=== PATIENT | female | born 1980 | race Caucasian/White ===

== ENCOUNTER 2016-07-14 13:42 | Outpatient (CLI) | payer BC ==
[~2016-07-14 13:42] MED LIST: MEGACE40 MG PO; PERCOCET 5/31 TABLET PO
[2016-07-14 14:01] VITALS: BP 135/79
[2016-07-14 14:29] VITALS: BP 125/80
[2016-07-14] MEDS ORDERED: ZANTAC150 MG PO (14:38)
== END 2016-07-14 15:25 | disposition home or self-care (01) ==
LOC: LDRP-OP 13:42 → 2WEST 13:43 → LDRP-OP 08-17 09:35
DX: O47.1 False labor at or after 37 completed weeks of gestation (principal); O99.89 Other specified diseases and conditions complicating pregnancy, childbirth and the puerperium; Z3A.39 39 weeks gestation of pregnancy
CPT/HCPCS: 59025; G0378

== ENCOUNTER 2016-07-25 17:32 | Inpatient (IN) | payer BC ==
[~2016-07-25] VITALS: Ht 162.6 cm; Wt 95.1 kg
[~2016-07-25 17:32] MED LIST changes: +ZANTAC150 MG PO
[2016-07-25 18:04] VITALS: BP 128/74
[2016-07-25 18:59] VITALS: BP 140/83
[2016-07-25 19:29] VITALS: BP 114/65
[2016-07-25 19:34] LABS: EOSINOPHIL (%) 0.8 % (0-5); EOSINOPHIL COUNT 0.1 K/uL (0-0.3); HEMATOCRIT 36.1 % (36.0-46.0); HEMATOLOGY COMMENT 1 SMEAR COMPATIBLE; IMMATURE GRANULOCYTE (%) 0.4 % (0.0-0.7); LYMPHOCYTE COUNT 2.7 K/uL (1.0-2.8); MCH 30.8 PG (29.0-34.0); MCHC 34.6 G/DL (30.0-36.0); MCV 88.9 FL (83-99); MONOCYTE (%) 9.6 % (3-12); NEUTROPHIL (%) 63.1 % (45-76); NEUTROPHIL COUNT 6.5 K/uL (1.8-6.4); PLAT.SUFFICIENCY DECREASED; PLATELET COUNT 119 K/uL (156-360); RBC DIS.WIDTH-CV 13.3 % (11.8-14.6); RED BLOOD COUNT 4.06 M/uL (3.80-5.20); USER ID VLB; WHITE BLOOD COUNT 10.3 K/uL (4.1-10.2)
[2016-07-25 20:39] VITALS: BP 134/92
[2016-07-25 22:15] VITALS: BP 116/70
[2016-07-25 23:05] VITALS: BP 128/94
[2016-07-26] VITALS (33 sets, daily range): BP systolic 109–152; BP diastolic 66–101
[2016-07-27] VITALS (23 sets, daily range): BP systolic 117–156; BP diastolic 65–98
[2016-07-28 06:16] LABS: EOSINOPHIL (%) 0.9 % (0-5); EOSINOPHIL COUNT 0.2 K/uL (0-0.3); IMMATURE GRANULOCYTE (%) 0.5 % (0.0-0.7); IMMATURE GRANULOCYTE COUNT 0.1 K/uL; LYMPHOCYTE COUNT 3.3 K/uL (1.0-2.8); MONOCYTE (%) 6.2 % (3-12); MONOCYTE COUNT 1.1 K/uL (0-0.8); NEUTROPHIL (%) 73.7 % (45-76)
[2016-07-28 06:42] LABS: HEMATOCRIT 30.4 % (36.0-46.0); MCH 30.9 PG (29.0-34.0); MCHC 34.2 G/DL (30.0-36.0); MCV 90.2 FL (83-99); RBC DIS.WIDTH-CV 13.6 % (11.8-14.6); RBC DIS.WIDTH-SD 44.7 % (39-53); RED BLOOD COUNT 3.37 M/uL (3.80-5.20)
[2016-07-28 06:43] LABS: WHITE BLOOD COUNT 17.7 K/uL (4.1-10.2)
[2016-07-28 07:53] VITALS: BP 136/79
[2016-07-28 08:00] LABS: HEMATOLOGY COMMENT 1 SMEAR COMPATIBLE; MEAN PLAT.VOLUME 14.6 uM^3 (9.5-12.4); PLAT.SUFFICIENCY DECREASED; PLATELET COUNT 99 K/uL (156-360); USER ID CCL
[2016-07-28 16:19] VITALS: BP 145/82
[2016-07-29] MEDS ORDERED: IBUPROFEN800 MG PO (10:43)
[2016-07-29] MEDS ORDERED: ENDOCET 5-3251 EACH PO (10:44)
== END 2016-07-29 19:40 | disposition home or self-care (01) | DRG 775 ==
LOC: LDRP-OP 17:32 → 2WEST 17:33 → LDRP-OP 08-17 16:09
PROVIDERS: Midwife; Nurse Practitioner
PROC: 3E0P7GC Introduction of Other Therapeutic Substance into Female Reproductive, Via Natural or Artificial Opening (ICD-10-PCS; principal; 2016-07-25)
PROC: 3E0S3CZ (ICD-10-PCS; 2016-07-26)
PROC: 00HU33Z Insertion of Infusion Device into Spinal Canal, Percutaneous Approach (ICD-10-PCS; 2016-07-26)
PROC: 0DQR0ZZ Repair Anal Sphincter, Open Approach (ICD-10-PCS; 2016-07-27)
PROC: 10E0XZZ Delivery of Products of Conception, External Approach (ICD-10-PCS; 2016-07-27)
DX: O70.21 Third degree perineal laceration during delivery, IIIa (principal); Z3A.41 41 weeks gestation of pregnancy; Z37.0 Single live birth; O48.0 Post-term pregnancy; E66.9 Obesity, unspecified; Z68.33 Body mass index [BMI] 33.0-33.9, adult; O99.214 Obesity complicating childbirth; O13.4 Gestational [pregnancy-induced] hypertension without significant proteinuria, complicating childbirth
CPT/HCPCS: 85025; C1755; G0378; J1200; J2795; J3010; J7120